=== PATIENT | female | born 1970 ===

== ENCOUNTER → 2017-04-20 | Outpatient (CLI) | payer OTHER ==
[~2017-04-20] MED LIST: ALBU90OI INH; ATOM40 PO; CEPH500 PO; CLIN150 PO; ERYT250 PO; HYDACE5 PO; Loperamide2 MG PO; ONDA4ODT MM; SERT25 PO; Zofran Odt4 MG PO
[2017-04-20 11:11] LABS: BASOPHILS ABSOLUTE AUTO 0.02 K/mm3 (0.00-0.23); BASOPHILS PERCENT AUTO 0 % (0-2); EOSINOPHILS ABSOLUTE AUTO 0.16 K/mm3 (0.00-0.68); EOSINOPHILS PERCENT AUTO 2 % (0-6); Hematocrit 43.4 % (33.0-51.0); Hemoglobin 14.2 g/dL (11.5-16.0); IMMATURE GRAN ABSOLUTE AUTO 0.02 K/mm3 (0.00-0.10); IMMATURE GRAN PERCENT AUTO 0 % (0-1); LYMPHOCYTES ABSOLUTE AUTO 1.78 K/mm3 (0.84-5.20); LYMPHOCYTES PERCENT AUTO 24 % (21-46); MONOCYTES ABSOLUTE AUTO 0.44 K/mm3 (0.16-1.47); MONOCYTES PERCENT AUTO 6 % (4-13); Mean Corpuscular HGB 33.1 pg (26.0-34.0); Mean Corpuscular HGB Conc 32.7 g/dL (31.5-36.5); Mean Corpuscular Volume 101 fL (80-100); Mean Platelet Volume 10.4 fL (9.1-12.4); NEUTROPHILS ABSOLUTE AUTO 5.17 K/mm3 (1.96-9.15); NEUTROPHILS PERCENT AUTO 68 % (41-73); Platelet Count 172 K/mm3 (150-400); RDW Coefficient Variation 12.9 % (11.7-14.2); RDW Standard Deviation 47.8 fL (35.1-46.3); Red Blood Cell Count 4.29 M/mm3 (3.80-5.20); White Blood Cell Count 7.59 K/mm3 (4.00-11.30)
[2017-04-20 11:55] LABS: Anion Gap 7 mmol/L (6-16); Blood Urea Nitrogen 17 mg/dL (8-24); Bun/Creatinine Ratio 23.8 (12.0-20.0); CHOL/HDL RATIO 2.4; CO2, Blood 26 mmol/L (21-32); Chloride, Blood 105 mmol/L (98-108); Cholesterol 113 mg/dL (50-200); Creatinine, Blood 0.71 mg/dL (0.40-1.00); Glomerular Filtration Rate >60 (60-); Glucose, Blood 104 mg/dL (70-99); HDL Cholesterol 47 mg/dL (>39); Low Density Lipoprotein Chol 49 mg/dL (0-110); Potassium, Blood 4.3 mmol/L (3.5-5.5); Sodium, Blood 138 mmol/L (136-145); Triglycerides 84 mg/dL (30-160); Very Low Density Lipoprot Chol 17 mg/dL (6-32)
[2017-04-21 11:44] LABS: HPV Genotype 16 Not Detected (NOTDET); HPV Genotype 18 Not Detected (NOTDET)
[2017-04-28 15:38] LABS: HPV High Risk Other Not Detected (NOTDET)
== END | disposition home or self-care (01) ==
LOC: OLS 10:11
PROVIDERS: Nurse Practitioner Women's Health
DX: Z12.4 Encounter for screening for malignant neoplasm of cervix (principal); Z13.220 Encounter for screening for lipoid disorders; Z13.228 Encounter for screening for other metabolic disorders; R53.83 Other fatigue; Z91.89 Other specified personal risk factors, not elsewhere classified
CPT/HCPCS: 36415; 80048; 80061; 84443; 85025; 87624; G0123

== ENCOUNTER → 2018-09-07 | Outpatient (CLI) | payer OTHER ==
[2018-09-08 14:08] LABS: HPV 16 Negative (Negative); HPV 18 Negative (Negative); HPV OTHER HR TYPES Negative (Negative)
== END | disposition home or self-care (01) ==
LOC: LAB SHORT 12:44 → LAB 12:44
PROVIDERS: Nurse Practitioner Women's Health
DX: Z12.4 Encounter for screening for malignant neoplasm of cervix (principal); Z91.89 Other specified personal risk factors, not elsewhere classified
CPT/HCPCS: 87624; G0123

== ENCOUNTER 2019-02-18 15:17 | Emergency (ER) | payer OTHER ==
[~2019-02-18] VITALS: Ht 167.6 cm; Wt 113.4 kg
[2019-02-18] MEDS ORDERED: ESCI20 PO (15:32)
[2019-02-18 15:54] LABS: Influenza A Negative (NEGATIVE); Influenza B Negative (NEGATIVE)
[2019-02-18] MEDS ORDERED: Prednisone20 MG PO ×2 (17:00→17:01)
[2019-02-18] MEDS ORDERED: ALBU90OI INH ×2 (17:00→17:01)
[2019-02-18] MEDS ORDERED: Flonase 0.05% N16 GM ×2 (17:00→17:01)
[2019-02-18] MEDS ORDERED: BENZ100A PO ×2 (17:00→17:01)
== END 2019-02-18 17:17 | disposition home or self-care (01) ==
LOC: ER 15:17
PROVIDERS: Physician Assistant
DX: J20.9 Acute bronchitis, unspecified (principal); F90.9 Attention-deficit hyperactivity disorder, unspecified type; F32.9 Major depressive disorder, single episode, unspecified; Z87.891 Personal history of nicotine dependence; Z88.5 Allergy status to narcotic agent
CPT/HCPCS: 71046; 87804; 94640; 99284-25; J7512

== ENCOUNTER 2019-11-27 10:30 | Emergency (ER) | payer OTHER ==
[~2019-11-27] VITALS: Ht 167.6 cm; Wt 113.4 kg
[~2019-11-27 10:30] MED LIST changes: +BENZ100A PO; +ESCI20 PO; +Flonase 0.05% N16 GM; +Prednisone20 MG PO
== END 2019-11-27 15:34 | disposition left against medical advice (07) ==
LOC: ER 10:30
DX: M25.561 Pain in right knee (principal)
CPT/HCPCS: 73564; 99283-25

== ENCOUNTER 2020-02-04 18:05 | Observation (INO) | payer OTHER ==
[~2020-02-04] VITALS: Ht 167.6 cm; Wt 100.0 kg
[2020-02-04] MEDS ORDERED: LAMO100 (18:39)
[2020-02-04 18:50] LABS: BASOPHILS ABSOLUTE AUTO 0.06 K/mm3 (0.00-0.23); BASOPHILS PERCENT AUTO 1 % (0-2); EOSINOPHILS ABSOLUTE AUTO 0.19 K/mm3 (0.00-0.68); EOSINOPHILS PERCENT AUTO 2 % (0-6); Hematocrit 42.8 % (33.0-51.0); Hemoglobin 14.5 g/dL (11.5-16.0); IMMATURE GRAN ABSOLUTE AUTO 0.04 K/mm3 (0.00-0.10); IMMATURE GRAN PERCENT AUTO 0 % (0-1); LYMPHOCYTES ABSOLUTE AUTO 2.92 K/mm3 (0.84-5.20); LYMPHOCYTES PERCENT AUTO 27 % (21-46); MONOCYTES ABSOLUTE AUTO 0.63 K/mm3 (0.16-1.47); MONOCYTES PERCENT AUTO 6 % (4-13); Mean Corpuscular HGB 31.7 pg (26.0-34.0); Mean Corpuscular HGB Conc 33.9 g/dL (31.5-36.5); Mean Corpuscular Volume 93 fL (80-100); Mean Platelet Volume 9.8 fL (9.1-12.4); NEUTROPHILS ABSOLUTE AUTO 6.96 K/mm3 (1.96-9.15); NEUTROPHILS PERCENT AUTO 64 % (41-73); Platelet Count 212 K/mm3 (150-400); RDW Coefficient Variation 12.4 % (11.7-14.2); RDW Standard Deviation 43.4 fL (35.1-46.3); Red Blood Cell Count 4.58 M/mm3 (3.80-5.20)
[2020-02-04 19:11] LABS: Alanine Aminotransfer (ALT/SGP 28 U/L (12-78); Albumin, Blood 3.8 g/dL (3.4-5.0); Albumin/Globulin Ratio 1.1 (0.8-1.8); Alk Phos 82 U/L (50-136); Anion Gap 9 mmol/L (6-16); Aspartate Aminotrans (AST/SGOT 27 U/L (12-37); Bilirubin, Total 0.6 mg/dL (0.1-1.0); Blood Urea Nitrogen 22 mg/dL (8-24); Bun/Creatinine Ratio 29.5 (12.0-20.0); CO2, Blood 23 mmol/L (21-32); Calcium, Blood 8.7 mg/dL (8.5-10.1); Chloride, Blood 112 mmol/L (98-108); Creatinine, Blood 0.75 mg/dL (0.40-1.00); Globulin, Blood 3.5 g/dL (2.2-4.0); Glomerular Filtration Rate >60 (60-); Glucose, Blood 135 mg/dL (70-99); Potassium, Blood 3.9 mmol/L (3.5-5.5); Sodium, Blood 144 mmol/L (136-145); Total Protein, Blood 7.3 g/dL (6.4-8.2)
[2020-02-04 19:41] LABS: Source, Urine Voided
[2020-02-04 19:58] LABS: Bilirubin, Urine Neg (Neg); Blood, Urine Neg (Neg); Glucose Qualitative, Urine Neg (Neg); Ketones, Urine 3+ (Neg); Leukocyte Esterase, Urine 1+ (Neg); Nitrite, Urine Neg (Neg); Protein, Urine 1+ (Neg); Urobilinogen, Urine NORM (Normal)
[2020-02-04 20:01] LABS: Appearance, Urine Clear (Clear); Color, Urine Yellow (P-Yellow)
[2020-02-04 20:05] LABS: Bacteria Rare /hpf; Red Blood Cells, Urine Not Seen /hpf (0-2); Squamous Epithelial Cells Few /hpf (Few); White Blood Cells, Urine Rare /hpf (0-5)
[2020-02-05 00:30] LABS: Troponin I <0.015 ng/mL (0.000-0.040)
--- NOTE | 2020-02-05 01:49 | NUR ---
PT ARRIVED ON MED FLOOR FROM ED AT 0130. MOANING AND YELLING OUT IN PAIN. STATES ABD FEELS LIKE IT IS ON FIRE AND EXPANDING. DENIES NAUSEA AT THIS TIME. CALL TO HOSPITALIST, DR. JOYCE ORDERED FENTANYL 50MCG IV NOW, THEN 25-50MCG IV Q4 HRS PRN.
[2020-02-05] MEDS ORDERED: Prinivil10 MG PO (02:12)
[2020-02-05] MEDS ORDERED: HYDPAM50 PO (02:13)
[2020-02-05 04:07] LABS: Magnesium, Blood 1.7 mg/dL (1.6-2.4)
--- NOTE | 2020-02-05 04:16 | NUR ---
CALL TO HOSPITALIST, DR. JOYCE. PT BEGINNING TO MOAN AND CRY OUT IN PAIN W/EXTREMETIES SHAKING. REPORTING ABD PAIN 10/10 2 HOURS AFTER RECEIVING LAST DOSE OF FENTANYL. RECEIVED ORDER TO INCREASE FREQUENCY OF FENTANYL TO Q 2 HRS.
--- NOTE | 2020-02-05 04:20 | NUR ---
SHIFT SUMMARY: VSS. AFEB. AAOX4. INDEPENDENT IN ROOM. NO N/V. NO DIARRHEA SINCE ARRIVAL TO MEDICAL FLOOR. STOOL COLLECTION CONTAINER PLACED IN TOILET AND PT INSTRUCTED TO INFORM STAFF WHEN SHE HAS A BM. PAIN MANAGED W/Q2HR FENTANYL AT THIS TIME. DESCRIBES PAIN BURNING RADIATING FROM UPPER TO LOWER ABD AND PRESSURE THOUGH SOMEONE IS STANDING ON HER STOMACH. BT HYPOACTIVE. RAMSES CLEAR LIQUIDS WELL. WILL CONT TO MONITOR.
[2020-02-05 06:47] LABS: BASOPHILS ABSOLUTE AUTO 0.01 K/mm3 (0.00-0.23); BASOPHILS PERCENT AUTO 0 % (0-2); EOSINOPHILS PERCENT AUTO 0 % (0-6); Hematocrit 35.2 % (33.0-51.0); Hemoglobin 11.6 g/dL (11.5-16.0); IMMATURE GRAN ABSOLUTE AUTO 0.03 K/mm3 (0.00-0.10); IMMATURE GRAN PERCENT AUTO 0 % (0-1); LYMPHOCYTES ABSOLUTE AUTO 0.98 K/mm3 (0.84-5.20); LYMPHOCYTES PERCENT AUTO 10 % (21-46); MONOCYTES ABSOLUTE AUTO 0.39 K/mm3 (0.16-1.47); MONOCYTES PERCENT AUTO 4 % (4-13); Mean Corpuscular Volume 97 fL (80-100); Mean Platelet Volume 9.9 fL (9.1-12.4); NEUTROPHILS ABSOLUTE AUTO 8.37 K/mm3 (1.96-9.15); NEUTROPHILS PERCENT AUTO 86 % (41-73); Platelet Count 147 K/mm3 (150-400); RDW Coefficient Variation 12.9 % (11.7-14.2); RDW Standard Deviation 46.1 fL (35.1-46.3); Red Blood Cell Count 3.62 M/mm3 (3.80-5.20); White Blood Cell Count 9.78 K/mm3 (4.00-11.30)
[2020-02-05 06:59] LABS: Alanine Aminotransfer (ALT/SGP 30 U/L (12-78); Alk Phos 63 U/L (50-136); Anion Gap 4 mmol/L (6-16); Aspartate Aminotrans (AST/SGOT 25 U/L (12-37); Bilirubin, Total 0.5 mg/dL (0.1-1.0); Blood Urea Nitrogen 16 mg/dL (8-24); Bun/Creatinine Ratio 23.7 (12.0-20.0); CO2, Blood 28 mmol/L (21-32); Calcium, Blood 7.5 mg/dL (8.5-10.1); Chloride, Blood 111 mmol/L (98-108); Creatinine, Blood 0.67 mg/dL (0.40-1.00); Globulin, Blood 2.9 g/dL (2.2-4.0); Glomerular Filtration Rate >60 (60-); Glucose, Blood 159 mg/dL (70-99); Potassium, Blood 3.9 mmol/L (3.5-5.5); Sodium, Blood 143 mmol/L (136-145); Total Protein, Blood 5.9 g/dL (6.4-8.2)
--- NOTE | 2020-02-05 09:36 | NUR ---
NO GI COMPLAINTS. TOLERATED CLEAR LIQUIDS THIS MORNING.
[2020-02-05] MEDS ORDERED: ONDA4 PO (10:48)
--- NOTE | 2020-02-05 11:22 | NUR ---
DISCHARGED WITH SON PRESENT. ALL QUESTIONS ANSWERED AND VERBALIZED UNDERSTANDING OF DISCHARGE INSRUCTIONS. INSTRUCTED TO FOLLOW-UP WITH PCP NEEDED, PER VO DR. GOODE.
== END 2020-02-05 11:18 | disposition home or self-care (01) ==
LOC: ER 18:05 → MEDS 18:06 → ENPENDDIS 02-05 10:34 → MEDS 02-05 11:18
PROVIDERS: Emergency Medicine; ADMIT Internal Medicine
DX: K52.9 Noninfective gastroenteritis and colitis, unspecified (principal); E86.0 Dehydration; F31.9 Bipolar disorder, unspecified; Z23 Encounter for immunization; Z87.891 Personal history of nicotine dependence; Z88.5 Allergy status to narcotic agent; Z79.899 Other long term (current) drug therapy; Z98.51 Tubal ligation status; Z90.49 Acquired absence of other specified parts of digestive tract
CPT/HCPCS: 36415; 71275; 74175; 80053; 81001; 83605; 83690; 83735; 84484; 85025; 93005; 93010; 96361; 96374-59; 96375-59; 96376-59; 99285-25; J1170; J1650; J2060; J2405; J3010; J7030; Q9967

== ENCOUNTER 2021-05-09 15:13 | Emergency (ER) | payer OTHER ==
[~2021-05-09] VITALS: Ht 167.6 cm; Wt 102.1 kg
[~2021-05-09 15:13] MED LIST changes: +HYDPAM50 PO; +LAMO100; +ONDA4 PO; +Prinivil10 MG PO
== END 2021-05-09 17:49 | disposition home or self-care (01) ==
LOC: ER 15:13
DX: S01.01XA Laceration without foreign body of scalp, initial encounter (principal); Z87.891 Personal history of nicotine dependence; F31.9 Bipolar disorder, unspecified; Z79.899 Other long term (current) drug therapy; W22.8XXA Striking against or struck by other objects, initial encounter
CPT/HCPCS: 12002; 70450; 90471; 90714; 96372; 99283-25; J1885